=== PATIENT | female | born 1990 | race Two or more races ===

== ENCOUNTER 2021-02-10 02:01 | Inpatient (IN) | payer OTHER ==
[2021-02-10] MEDS ORDERED: OXYTOCIN 30 UNITS/500 ML NS 30 UNIT in SALINE 1 500ML.BAG IV SCH ×2 (02:30→17:15)
[2021-02-10] MEDS ORDERED: LIDOCAINE 0.5% (PF) 5 MG/ML (50 ML SDV) SQ PRN (02:30)
[2021-02-10] MEDS ORDERED: CARBOPROST TROMETHAMINE 250 MCG/ML 1 ML AMP IM PRN (02:30)
[2021-02-10] MEDS ORDERED: TERBUTALINE 1 MG/ML VIAL SQ PRN (02:30)
[2021-02-10] MEDS ORDERED: METHYLERGONOVINE 0.2 MG/ML 1 ML AMP IM PRN (02:30)
[2021-02-10] MEDS ORDERED: OXYTOCIN 10 UNIT/ML 1 ML VIAL IM PRN (02:30)
[2021-02-10] MEDS: LACTATED RINGERS 1,000 ML IV SCH ×3 (03:12→19:05)
[2021-02-10 03:41] LABS: Basophils # (A) 0.1 k/uL (0-0.2); Basophils % (A) 0 %; Eosinophils # (A) 0.1 k/uL (0-0.7); Eosinophils % (A) 1 %; HCT 37.8 % (34.0-46.0); HGB 12.4 gm/dL (11.4-16.0); Lymphocytes # (A) 2.1 k/uL (1.0-4.8); Lymphocytes % (A) 15 %; MCH 27.5 pg (25.0-35.0); MCHC 32.8 g/dL (31.0-37.0); MCV 83.7 fL (80.0-100.0); Mean Platelet Volume 8.2; Monocytes # (A) 0.8 k/uL (0-1.0); Monocytes % (A) 6 %; Neutrophils # (A) 10.6 k/uL (1.3-7.7); Neutrophils % (A) 77 %; Platelet Count 324 k/uL (150-450); RBC 4.51 m/uL (3.80-5.40); RDW 13.9 % (11.5-15.5); WBC 13.8 k/uL (3.8-10.6)
[2021-02-10] MEDS: BUTORPHANOL 1 MG/ML 1 ML VIAL IV PRN ×2 (06:12→08:21)
[2021-02-10] MEDS ORDERED: ROPIVACAINE 5MG/ML 20ML VIAL ONE (09:00)
[2021-02-10] MEDS ORDERED: SODIUM CHLORIDE 0.9% 100 ML BAG ONE (09:00)
[2021-02-10] MEDS ORDERED: fentaNYL (PF) 50 MCG/ML 5 ML AMP ONE (09:00)
[2021-02-10] MEDS ORDERED: AMPICILLIN 2,000 MG in SODIUM CHLORIDE 0.9% 100 ML IVPB STA (14:09)
[2021-02-10] MEDS ORDERED: diphenhydrAMINE 25 MG CAP PO PRN (17:14)
[2021-02-10] MEDS ORDERED: ZOLPIDEM 5 MG TAB PO PRN (17:14)
[2021-02-10] MEDS ORDERED: BENZOCAINE/MENTHOL SPRAY 1 GM/SPRAY AEROSOL TOPICAL PRN (17:14)
[2021-02-10] MEDS ORDERED: HYDROCORTISONE 2.5% RECTAL CREAM 30 GM TUBE RECTAL PRN (17:14)
[2021-02-10] MEDS ORDERED: LANOLIN CREAM 5 GM TUBE TOPICAL PRN (17:14)
[2021-02-10] MEDS ORDERED: diphenhydrAMINE 50 MG/ML 1 ML VIAL IVP PRN ×2 (17:14)
[2021-02-10] MEDS ORDERED: SIMETHICONE 80 MG CHEWABLE PO PRN (17:14)
[2021-02-10] MEDS ORDERED: ACETAMINOPHEN TAB 325 MG TAB PO PRN (17:14)
[2021-02-10] MEDS ORDERED: diphenhydrAMINE 50 MG CAP PO PRN (17:14)
--- NOTE | 2021-02-10 17:19 | P.PROBDLV ---
Vaginal Delivery Note - . 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 Patient was noted to be 39 weeks and 0 days, estimated due date 02/17. Patient was admitted to labor and delivery patient made minimal change therefore Pitocin augmentation of labor was begun. Patient made slow progress, became uncomfortable and requested epidural placement. Epidural was placed without difficulty by the anesthesia department. Patient slowly progressed to complete began pushing and had a normal spontaneous vaginal delivery of a viable female at 1652, weight of 6 lbs. 9 oz., occiput posterior presentation. Loose nuchal cord was noted at delivery, this was delivered through. After two-minute delayed the umbo cord was doubly clamped and cut and the infant was handed to the maternal abdomen. Cord blood was then taken. The placenta was then delivered spontaneously intact with three-vessel cord being noted. The placenta appeared intact. On inspection the patient's vaginal vault a secondary midline laceration was appreciated. Lidocaine was instilled into the laceration, the laceration was closed with 3-0 Rapide in the usual fashion. The uterus noted to be firm and below the umbilicus at this time, lochia was minimal. The laceration was noted to be hemostatic. The bladder was then drained for 200 cc of clear yellow urine. Estimated blood loss 200 mL. patient and infant tolerated delivery well and are resting comfortably. All counts were noted to be correct 2 at the end of the delivery.
--- NOTE | 2021-02-10 17:19 | P.HPOB ---
History of Present Illness H&P Date: 02/10/21 Chief Complaint: IUP at 39 and 0/sevenths weeks, spontaneous rupture of memrut nice This is a 30-year-old 1 para 0 at 39-0/7 weeks that presents to labor and delivery with complaints of spontaneous rupture membranes around midnight. Patient stated fluid was clear in nature. Patient was noting a regular contraction at the time of rupture of membranes. Patient has been receiving routine care which has been complicated by known 2 vessel umbilical cord. Patient has been receiving growth ultrasounds, testing with NSTs weekly. She notes good movement. On bloodwork patient is a blood type of B-, rubella status immune, B surface antigen negative, HIV negative, RPR nonreactive, group beta strep was negative. Review of Systems Constitutional: Denies chills, Denies fatigue, Denies fever Ears, nose, mouth and throat: Denies headache Cardiovascular: Reports leg edema Respiratory: Denies dyspnea Gastrointestinal: Denies constipation, Denies diarrhea, Denies nausea, Denies vomiting Genitourinary: Reports Past Medical History Additional Past Medical History / Comment(s): heart murmur, kidney infections, anemia History of Any Multi-Drug Resistant Organisms: None Reported Additional Past Surgical History / Comment(s): LEEP, cervical polyp Past Anesthesia/Blood Transfusion Reactions: No Reported Reaction Past Psychological History: No Psychological Hx Reported Smoking Status: Never smoker Past Alcohol Use History: None Reported Past Drug Use History: None Reported Medications and Allergies Home Medications Medication Instructions Recorded Confirmed Type Aspirin [Adult Low Dose Aspirin EC] 81 mg PO DAILY 02/10/21 02/10/21 History Cetirizine HCl [Zyrtec ODT] 10 mg PO DIRECTED PRN 02/10/21 02/10/21 History Omeprazole [PriLOSEC] 20 mg PO HS 02/10/21 02/10/21 History Pnv No.95/Ferrous Fum/Folic AC 1 tab PO DAILY 02/10/21 02/10/21 History [ Multivitamin Tablet] Allergies Allergy/AdvReac Type Severity Reaction Status Date / Time No Known Allergies Allergy Verified 02/10/21 02:13 Exam Osteopathic Statement: *. No significant issues noted on an osteopathic structural exam other than those noted in the History and Physical/Consult. 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 Heart tones are noted to be category 1 and she is ibrahima every 3 minutes, Pitocin is on 1. Results Result Diagrams: 02/10/21 03:00 Abnormal Lab Results - Last 24 Hours (Table) 02/10/21 Range/Units 03:00 WBC 13.8 H (3.8-10.6) k/uL Neutrophils # 10.6 H (1.3-7.7) k/uL Assessment and Plan (1) Term Current Visit: Yes Status: Acute Code(s): Z34.90 - ENCNTR FOR SUPRVSN OF NORMAL , UNSP, UNSP TRIMESTER SNOMED Code(s): 37095952 (2) SROM (spontaneous rupture of membranes) Current Visit: Yes Status: Acute Code(s): KWY3729 - SNOMED Code(s): 571994295 (3) Umbilical cord, single artery and vein Current Visit: Yes Status: Acute Code(s): Q27.0 - CONGENITAL ABSENCE AND HYPOPLASIA OF UMBILICAL ARTERY SNOMED Code(s): 061885340 Plan: 30-year-old 1 para 0 at 39 0/7 weeks that presented with complaints of spontaneous rupture of membranes and contractions. Patient is admitted to labor and delivery for expectant management. Minimal cervical change was noted therefore Pitocin augmentation of labor was begun. Options for analgesia including Stadol and epidural are discussed, patient elects epidural. Anesthesia is notified. Anticipate spontaneous vaginal delivery later today.
[2021-02-10] MEDS ORDERED: AMPICILLIN 1,000 MG in SODIUM CHLORIDE 0.9% 50 ML IVPB SCH (18:00)
[2021-02-10] MEDS: IBUPROFEN 600 MG TAB PO SCH (19:17)
[2021-02-10] MEDS ORDERED: Rhogam IMMUNE GLOBULIN 1,500 UNIT/1 ML IM ONE (20:02)
[2021-02-10] MEDS: SENNOSIDES-DOCUSATE SODIUM 1 EACH TAB PO SCH (20:21)
[2021-02-11] MEDS: IBUPROFEN 600 MG TAB PO SCH ×4 (02:02→21:35)
--- NOTE | 2021-02-11 08:46 | P.DS ---
Providers Date of admission: 02/10/21 02:23 Expected date of discharge: 02/11/21 Attending physician: Hanna Kellogg Primary care physician: Stated None - Discharge Diagnosis(es) (1) Term Current Visit: Yes Status: Acute (2) SROM (spontaneous rupture of membranes) Current Visit: Yes Status: Acute (3) Umbilical cord, single artery and vein Current Visit: Yes Status: Acute (4) Status post normal vaginal delivery Current Visit: Yes Status: Acute (5) Obstetric vaginal laceration with second degree perineal laceration Current Visit: Yes Status: Acute Hospital Course: This is a 30-year-old 1 para 0 that presented to labor and delivery at 39-0/7 weeks with complaints of spontaneous rupture of membranes at home. Patient noted fluid to be clear in nature. Patient had been receiving routine care which has been complicated by a single umbilical artery noted on 20 week ultrasound and additional anatomical survey was negative. Patient underwent routine growth ultrasounds, and testing. All testing was normal. Patient has a known blood type of B-. Patient was admitted to labor and delivery with expectant management. Patient made minimal change after admission therefore Pitocin augmentation of labor was begun. Patient became uncomfortable and did request epidural placement. Epidural was placed without difficulty by the anesthesia department. Patient made slow progress toward complete began pushing and had a normal spontaneous vaginal delivery of a viable female infant in occiput posterior presentation at 1652, weight of 6 lbs. 9 oz. and Apgars of 8 and 9 at one and 5 minutes respectively. Patient did sustain a second-degree midline laceration which was repaired in the usual fashion after delivery. Patient's course has been uneventful. On this post day #1 she is ambulating and voiding without difficulty. She is tolerating a regular diet without nausea or vomiting. She states her pain is well-controlled with oral pain medication. She is breast feeding. Patient Condition at Discharge: Good Plan - Discharge Summary New Discharge Prescriptions: No Action Omeprazole [PriLOSEC] 20 mg PO HS Aspirin [Adult Low Dose Aspirin EC] 81 mg PO DAILY Pnv No.95/Ferrous Fum/Folic AC [ Multivitamin Tablet] 1 tab PO DAILY Cetirizine HCl [Zyrtec ODT] 10 mg PO DIRECTED PRN PRN Reason: Allergy Symptoms Discharge Medication List Aspirin [Adult Low Dose Aspirin EC] 81 mg PO DAILY 02/10/21 [History] Cetirizine HCl [Zyrtec ODT] 10 mg PO DIRECTED PRN 02/10/21 [History] Omeprazole [PriLOSEC] 20 mg PO HS 02/10/21 [History] Pnv No.95/Ferrous Fum/Folic AC [ Multivitamin Tablet] 1 tab PO DAILY 02/10/21 [History] Follow up Appointment(s)/Referral(s): Hanna Kellogg DO [Doctor of Osteopathic Medicine] - 4 Weeks Patient Instructions/Handouts: Vaginal Delivery (DC), Vaginal Delivery (GEN) Discharge Disposition: HOME SELF-CARE
[2021-02-11] MEDS: SENNOSIDES-DOCUSATE SODIUM 1 EACH TAB PO SCH ×2 (09:50→21:34)
[2021-02-12] MEDS: IBUPROFEN 600 MG TAB PO SCH ×3 (06:36→13:48)
--- NOTE | 2021-02-12 08:52 | P.PNOBGVD ---
Subjective - Subjective Principal diagnosis: day #2 status post normal spontaneous vaginal delivery Interval history: Patient is doing well . Ambulating and voiding without difficulty. Pain is well-controlled. Breast feeding is going well. Infant is currently being drawn for elevated bilirubin levels Patient reports: Reports appetite normal, Reports voiding normally, Reports pain well controlled, Reports ambulating normally [place]: doing well, nursing well Objective - Latest Vital Signs Latest vital signs: Vital Signs Temp Pulse Resp BP Pulse Ox 02/12/21 08:11 77 18 02/12/21 08:02 98.1 F 77 18 100/63 02/12/21 00:00 98.5 F 68 14 100/66 98 02/11/21 16:00 98.4 F 71 16 97/61 98 Intake and Output 02/11/21 02/12/21 02/12/21 22:59 06:59 14:59 Other: Voiding Method Toilet - Exam Extremities: Present: normal, edema Abdomen: Present: normal appearance Uterus: Present: normal, firm Assessment and Plan (1) Term Current Visit: Yes Status: Acute Code(s): Z34.90 - ENCNTR FOR SUPRVSN OF NORMAL , UNSP, UNSP TRIMESTER SNOMED Code(s): 06604095 (2) SROM (spontaneous rupture of membranes) Current Visit: Yes Status: Acute Code(s): [id number] - SNOMED Code(s): 312585210 (3) Umbilical cord, single artery and vein Current Visit: Yes Status: Acute Code(s): Q27.0 - CONGENITAL ABSENCE AND HYPOPLASIA OF UMBILICAL ARTERY SNOMED Code(s): 084782334 (4) Status post normal vaginal delivery Current Visit: Yes Status: Acute Code(s): [id number] - SNOMED Code(s): 2755 49893 (5) Obstetric vaginal laceration with second degree perineal laceration Current Visit: Yes Status: Acute Code(s): O70.1 - SECOND DEGREE PERINEAL LACERATION DURING DELIVERY SNOMED Code(s): 787385771 Plan: 30-year-old G1 now P1 status post normal spontaneous vaginal delivery. Patient is doing well. Plan discharge home later this afternoon. Discharge instructions reviewed. Follow-up in 4 weeks for routine care.
[2021-02-12] MEDS: SENNOSIDES-DOCUSATE SODIUM 1 EACH TAB PO SCH (10:46)
[2021-02-12 15:46] VITALS: BP 106/70; PULSE 77; RESP 16; TEMP 98.5
== END 2021-02-12 15:49 | disposition home or self-care (01) | DRG 807 ==
LOC: FBPOP 02:01 → 4FBP 02:23
PROVIDERS: ADMIT Obstetrics & Gynecology Obstetrics; ATTEND Obstetrics & Gynecology Obstetrics
PROC: 10E0XZZ Delivery of Products of Conception, External Approach (ICD-10-PCS; principal; 2021-02-10)
PROC: 0KQM0ZZ Repair Perineum Muscle, Open Approach (ICD-10-PCS; 2021-02-10)
PROC: 3E033VJ Introduction of Other Hormone into Peripheral Vein, Percutaneous Approach (ICD-10-PCS; 2021-02-10)
DX: O69.81X0 Labor and delivery complicated by cord around neck, without compression, not applicable or unspecified (principal); Z37.0 Single live birth; O70.1 Second degree perineal laceration during delivery; O69.89X0 Labor and delivery complicated by other cord complications, not applicable or unspecified; Q27.0 Congenital absence and hypoplasia of umbilical artery; O99.02 Anemia complicating childbirth; D64.9 Anemia, unspecified; Z3A.39 39 weeks gestation of pregnancy; Z79.82 Long term (current) use of aspirin; Z86.79 Personal history of other diseases of the circulatory system
CPT/HCPCS: 59025; 84112; 85025; 85461; 86850; 86900; 86901; 88307; 99213

== ENCOUNTER → 2022-09-28 | Outpatient (CLI) | payer OTHER ==
--- NOTE | 2022-09-28 13:07 | XR ---
EXAMINATION TYPE: XR knee complete LT DATE OF EXAM: 09/28/2022 COMPARISON: NONE HISTORY: Pain TECHNIQUE: Three views are submitted. FINDINGS: Joint spaces are preserved. Osseous structures are intact. No acute fracture seen. IMPRESSION: 1. No acute fracture or dislocation.
== END | disposition home or self-care (01) ==
LOC: RADXRMAIN 12:40
PROVIDERS: ATTEND Internal Medicine Geriatric Medicine
DX: M25.562 Pain in left knee (principal)

== ENCOUNTER → 2022-10-11 | Outpatient (CLI) | payer OTHER ==
--- NOTE | 2022-10-14 09:58 | MR ---
EXAMINATION TYPE: MR knee LT wo con DATE OF EXAM: 10/12/2022 COMPARISON: None HISTORY: Left knee pain TECHNIQUE: Multiplanar, multisequence imaging of the left knee is performed without IV contrast. FINDINGS: MEDIAL MENISCUS: There is signal along the peripheral margin posterior horn medial meniscus LATERAL MENISCUS: Anterior and posterior horns are intact without tear. CRUCIATE LIGAMENTS: The anterior and posterior cruciate ligaments are intact and unremarkable. COLLATERAL LIGAMENTS: The medial collateral ligament and lateral collateral ligament complex are inta ct and unremarkable. EXTENSOR MECHANISM: Visualized quadriceps and patellar tendons are intact. EFFUSION: No significant suprapatellar joint effusion. POPLITEAL CYST: No popliteal/duncan cyst. TRICOMPARTMENT SPACES: Normal CARTILAGE: Grade II chondromalacia medial patellar facet BONE MARROW SIGNAL: No focal abnormal marrow signal is appreciated. OTHER: No additional significant abnormality is appreciated. IMPRESSION: 1. There is peripheral degenerative intrasubstance signal within the posterior horn of the medial men iscus without clear articular extension. Differential diagnosis would include myxoid degeneration. Santana btle tear not excluded. Myxoid degeneration favored. 2. No evidence of ligamentous injury. 3. Grade II chondromalacia medial patellar facet
== END | disposition home or self-care (01) ==
LOC: RADMRIMAIN 20:00
PROVIDERS: ATTEND Orthopaedic Surgery
DX: M17.12 Unilateral primary osteoarthritis, left knee (principal); M22.42 Chondromalacia patellae, left knee